=== PATIENT | female | born 1995 | race Two or more races ===

== ENCOUNTER 2019-01-26 07:49 | Observation (INO) | payer OTHER ==
[~2019-01-26] VITALS: Ht 157.5 cm; Wt 53.1 kg
[2019-01-26 16:10] VITALS: BP 115/71
[2019-01-26] MEDS ORDERED: ONDANSETRON PF 4 MG/2 ML VIAL. IV PRN (17:00)
[2019-01-26] MEDS ORDERED: DEXTROSE 5% IV ONE (17:30)
[2019-01-26] MEDS ORDERED: ACETYLCYSTEINE IV ONE (17:30)
[2019-01-26] MEDS: IV DEXTROSE 5 %-0.45 % NACL 1,000 ML IV SCH (17:35)
[2019-01-26] MEDS ORDERED: SUMA50TA3 PO (17:43)
[2019-01-26 17:57] LABS: BASO # 0.1 x10^3/uL (0.0-0.2); BASO % 1 % (0-3); EOS % 0 % (0-3); HEMOGLOBIN 12.2 g/dL (12.0-15.5); LYMPH # 2.3 x10^3/uL (1.0-4.8); LYMPH % 26 % (24-48); MEAN CORPUSCULAR HEMOGLOBIN 27 pg (25-35); MEAN CORPUSCULAR HGB CONC 33 g/dL (31-37); MEAN CORPUSCULAR VOLUME 84 fL (79-100); MONO # 0.4 x10^3/uL (0.0-1.1); MONO % 5 % (0-9); NEUT # 6.1 x10^3uL (1.8-7.7); NEUT % 69 % (31-73); PLATELET COUNT 368 x10^3/uL (140-400); RED BLOOD COUNT 4.43 x10^6/uL (3.50-5.40); RED CELL DISTRIBUTION WIDTH 15.1 % (11.5-14.5); WHITE BLOOD COUNT 8.9 x10^3/uL (4.0-11.0)
[2019-01-26 18:06] LABS: CALCIUM 7.7 mg/dL (8.5-10.1); CREATININE 0.7 mg/dL (0.6-1.0); GFR 102.8; POTASSIUM 3.3 mmol/L (3.5-5.1); PROTHROMBIN TIME PATIENT 13.9 SEC (11.7-14.0)
[2019-01-26 18:12] LABS: TOTAL BILIRUBIN 0.2 mg/dL (0.2-1.0)
[2019-01-26 18:13] LABS: ACETAMIN 18.03 mcg/ml (10-30)
[2019-01-26 19:05] VITALS: BP 102/61
[2019-01-26 23:00] VITALS: BP 112/68
[2019-01-27 03:32] LABS: BASO # 0.1 x10^3/uL (0.0-0.2); BASO % 1 % (0-3); EOS # 0.1 x10^3/uL (0.0-0.7); EOS % 1 % (0-3); HEMATOCRIT 33.2 % (36.0-47.0); HEMOGLOBIN 11.1 g/dL (12.0-15.5); LYMPH # 3.9 x10^3/uL (1.0-4.8); LYMPH % 55 % (24-48); MEAN CORPUSCULAR HEMOGLOBIN 28 pg (25-35); MEAN CORPUSCULAR HGB CONC 33 g/dL (31-37); MEAN CORPUSCULAR VOLUME 83 fL (79-100); MONO # 0.5 x10^3/uL (0.0-1.1); MONO % 7 % (0-9); NEUT # 2.6 x10^3uL (1.8-7.7); NEUT % 37 % (31-73); PLATELET COUNT 320 x10^3/uL (140-400); RED BLOOD COUNT 3.99 x10^6/uL (3.50-5.40); RED CELL DISTRIBUTION WIDTH 14.6 % (11.5-14.5); WHITE BLOOD COUNT 7.1 x10^3/uL (4.0-11.0)
[2019-01-27 03:42] LABS: PROTHROMBIN TIME PATIENT 14.3 SEC (11.7-14.0)
[2019-01-27 03:47] LABS: CALCIUM 7.7 mg/dL (8.5-10.1); CREATININE 0.6 mg/dL (0.6-1.0); GFR 122.8; TOTAL BILIRUBIN 0.2 mg/dL (0.2-1.0)
[2019-01-27 03:50] LABS: ACETAMIN < 2 mcg/ml (10-30)
[2019-01-27 03:52] LABS: POTASSIUM 2.7 mmol/L (3.5-5.1)
[2019-01-27] MEDS ORDERED: POTASSIUM CHLORIDE 20 MEQ TABLET.ER. PO ONE ×3 (04:00→06:00)
[2019-01-27] MEDS: IV DEXTROSE 5 %-0.45 % NACL 1,000 ML IV SCH (05:17)
[2019-01-27 06:58] VITALS: BP 122/58
[2019-01-27] MEDS ORDERED: PARO20TA99 PO (09:04)
[2019-01-27] MEDS ORDERED: FLUT9.9S NS (09:04)
[2019-01-27 09:51] LABS: CALCIUM 7.9 mg/dL (8.5-10.1); CREATININE 0.8 mg/dL (0.6-1.0); GFR 88.1; POTASSIUM 4.3 mmol/L (3.5-5.1)
--- NOTE | 2019-01-27 10:09 | HP ---
ADMIT DATE: 01/26/2019 HISTORY OF PRESENT ILLNESS: The patient is a 23-year-old female patient who came to the Emergency Room of [facility] after taking an unknown amount of acetaminophen at 3:00 in the morning as self-harm attempts. She reports nausea and vomiting since that time. She denied any diarrhea. Denied any blood in the emesis. Denied any continued suicidal ideation and she denies any other co-ingestant. She was evaluated in the Emergency Room, and her blood acetaminophen was elevated 9 hours at 78, which showed that his above the treatment line on [facility] nomogram. She was started on acetylcysteine and was transferred to [facility] to continue with the rest of protocol as per Poison Control Center. On questioning the patient, she really could not give any clear explanation why she decided to harm herself, and her was deployed to [facility], and he came back. Denied any fighting with her , and she does have past medical history of anxiety and depression, for which she is on Paxil that she apparently stopped when she was . She started it back only in last October. Other medical problems include chronic migraine headache and bronchial asthma. 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 She also has wisdom tooth extraction. ALLERGIES: She has no known drug allergies. MEDICATIONS: She is currently on following medications: She is on paroxetine 20 mg once a day, sumatriptan succinate 50 mg once a day as needed and Flonase 2 sprays to each nostril once a day. FAMILY HISTORY: She has 1 older sister and younger brother, both healthy. Her both parents are alive and healthy. SOCIAL HISTORY: She is , has a 2-year-old daughter and 1-year-old son. She does not smoke, drinks alcohol occasionally. She was CBD. 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 REVIEW OF SYSTEMS: The patient denied any blurring of vision, cataract, glaucoma or macular degeneration. Denied any earache, tinnitus or sensorineural deafness. Denied any nosebleeds, stuffy nose or postnasal drip. Denied any sore throat, sore tongue, toothache, hoarseness of voice or difficulty swallowing. She did complain of nausea, vomiting, but no diarrhea or constipation. Denied any hematemesis, melena or hematochezia. Denied any dysuria, frequency or hematuria. Denied any chest pain, shortness of breath, orthopnea or paroxysmal nocturnal dyspnea. LABORATORY DATA: While at [facility], her lab work showed a white cell count of 10,900, hemoglobin 13, hematocrit 39, MCV 82, and platelet count of 427,000. Her prothrombin time was 10.3, INR of 1. Her serum sodium was 145, potassium 4.1, chloride 108, bicarbonate 25, anion gap of 12, glucose was 114, BUN 7, creatinine was 0.7. Estimated GFR was 102 mL per minute. Her calcium was 8.9. Total protein was 8.7, albumin was 4. Total bilirubin 0.2, AST, ALT, alkaline phosphatase were normal. Her magnesium was 2. Lipase was 59. Ammonia was 16 and acetaminophen level was 78 mcg/mL. Her test was negative. Poison Control Center was contacted, and the patient has received a loading dose of 150 mg/kg to 100 mL of 5% dextrose at [facility] and was transferred to [facility] where she received 12.5 mg/kg per hour for 4 hours and then 6.25 mg/kg per hour until goals achieved. She will be admitted with one to one sitter. The psychological assessment team will be contacted to evaluate the patient after the treatment is completed. BRINA RHODES MD DR: AJAY/shena JOB#: [id number] / [id number]
--- NOTE | 2019-01-27 19:36 | DS ---
DATE OF DISCHARGE: 01/27/2019 HOSPITAL COURSE: The patient is a 23-year-old female patient who was initially evaluated in the Emergency Room with an overdose of Tylenol as a suicidal attempt. She reported nausea and vomiting since she took the Tylenol and by the time she arrived to the Emergency Room she denied any continued suicidal ideation and she denied any other co-ingestant. She was evaluated in the Emergency Room and her blood acetaminophen was 9 hours at 78 for which she was above the treatment line on [facility] nomogram. She was started on acetaminophen according to the protocol by Poison Control Center and her Tylenol level is down to less than 2 mcg/mL. She was seen by the psychological assessment team who cleared her to go home. PHYSICAL EXAMINATION: GENERAL: When I saw her this morning, she looked well and was clearly in no apparent respiratory distress, slightly pale, no jaundice, cyanosis, or thyromegaly. No jugular venous distension. No lower limb edema. VITAL SIGNS: Her heart rate was 77, blood pressure was 122/58, temperature was 96.8, respiratory rate was 20, and oxygen saturation was 100% on room air. HEAD, EYES, EARS, NOSE AND THROAT: Normocephalic, atraumatic. NECK: Supple. HEART: Showed normal first and second sounds. No gallop, rub or murmur. CHEST: Clear to auscultation. No crepitation or rhonchi. ABDOMEN: Distended, soft, nontender. NEUROLOGIC: She is awake, alert, responding appropriately. All cranial nerves intact. EXTREMITIES: She moves extremities without difficulty. She ambulates without assistance or assistive devices. LABORATORY DATA: As of this morning showed a white cell count 7100, hemoglobin 11, hematocrit 33, MCV 83, and platelet count 320,000. Her chemistry showed serum sodium of 145, potassium 4.3, chloride 112, bicarbonate 23, anion gap of 10, BUN of 2, creatinine of 0.8, estimated GFR was 88, serum glucose 107, calcium was 7.9. Her AST, ALT, alkaline phosphatase are all normal. Her acetaminophen level this morning was less than 2 mcg/mL. DISCHARGE MEDICATIONS: She was discharged home to continue on Paxil 20 mg once a day, sumatriptan succinate or Imitrex 50 mg once a day as needed for migraine headache and Flonase 2 sprays to each nostril once a day. FINAL DISCHARGE DIAGNOSES: 1. Suicidal attempt by acetaminophen overdose. 2. Bronchial asthma. 3. Migraine headache. 4. Anxiety and depression. BRINA RHODES MD DR: AJAY/shena JOB#: [id number] / [id number]
== END 2019-01-27 11:40 | disposition home or self-care (01) ==
LOC: EDSTATUS 07:49 → 2 SOUTH 16:12 → UNDOADMIN 16:12 → 2 SOUTH 16:12 → UNDODISIN 01-27 11:40
PROVIDERS: ADMIT Internal Medicine; ATTEND Internal Medicine
DX: T39.1X2A Poisoning by 4-Aminophenol derivatives, intentional self-harm, initial encounter (principal); F41.9 Anxiety disorder, unspecified; F32.9 Major depressive disorder, single episode, unspecified; G43.909 Migraine, unspecified, not intractable, without status migrainosus; J45.909 Unspecified asthma, uncomplicated; R11.2 Nausea with vomiting, unspecified; Y92.89 Other specified places as the place of occurrence of the external cause
CPT/HCPCS: 36415; 80048; 80329; 82247; 84450; 84460; 85025; 85610; 96361; 96365; 96366; G0378; G0379; J0132; G0480